=== PATIENT | female | born 1970 | race Caucasian/White ===

== ENCOUNTER 2020-01-26 11:57 | Emergency (ER) | payer OTHER ==
[2020-01-26 12:06] VITALS: BP 105/71; PULSE 85
[2020-01-26 12:58] LABS: CHLORIDE,CL 103 mmol/L (98-107); SODIUM,NA 138 mmol/L (136-145)
[2020-01-26] MEDS ORDERED: Albuterol/Ipratropium 3.0-0.5 MG/3 ML Neb Soln NEB ONE (13:00)
--- NOTE | 2020-01-26 13:24 | EDM.PDOC ---
ED HPI GENERAL MEDICAL PROBLEM - General Chief Complaint: General Stated Complaint: cough, body aches Time Seen by Provider: 01/26/20 11:58 Source of Information: Reports: Patient History Limitations: Reports: No Limitations - History of Present Illness INITIAL COMMENTS - FREE TEXT/NARRATIVE: Pt presents with fever, dry cough body aches Symptoms began 3 days ago No other sin home with same No known exposures but did travel to [place] for 10 days and returned to on 01/17 Did travel through [place] and [place] Onset: Gradual Duration: Day(s): Location: Reports: Chest, Generalized Quality: Reports: Ache, Dull Severity: Moderate Associated Symptoms: Reports: Cough, Fever/Chills, Malaise generalized Pain Score (Numeric/FACES): 4 - Related Data Allergies Allergy/AdvReac Type Severity Reaction Status Date / Time Iodinated Contrast Media Allergy Anaphylactic Verified 01/26/20 12:07 Shock meperidine [From Demerol] Allergy Agitation Verified 01/26/20 12:07 nicotine Allergy Hives Verified 01/26/20 12:22 Home Meds: Home Meds Aspirin [Children's Aspirin] 81 mg PO DAILY 01/26/20 [History] Esomeprazole Magnesium [Nexium 24Hr] 20 mg PO DAILY 01/26/20 [History] Ibuprofen 800 mg PO Q6HR PRN 01/26/20 [History] Loratadine [Claritin] 10 mg PO DAILY 01/26/20 [History] Past Medical History - Past Surgical History HEENT Surgical History: Reports: Adenoidectomy, Tonsillectomy Musculoskeletal Surgical History: Reports: Other (See Below) Other Musculoskeletal Surgeries/Procedures:: laminectomy and discectomy Social & Family History - Tobacco Use Smoking Status *Q: Current Every Day Smoker Years of Tobacco use: 25 Packs/Tins Daily: 0.5 Second Hand Smoke Exposure: No - Caffeine Use Caffeine Use: Reports: Coffee - Recreational Drug Use Recreational Drug Use: No ED ROS GENERAL - Review of Systems Review Of Systems: See Below Constitutional: Reports: Fever, Chills, Malaise HEENT: Reports: No Symptoms Respiratory: Reports: Shortness of Breath, Cough Cardiovascular: Reports: No Symptoms GI/Abdominal: Reports: No Symptoms Musculoskeletal: Reports: No Symptoms Skin: Reports: No Symptoms ED EXAM, GENERAL - Physical Exam Exam: See Below Exam Limited By: No Limitations General Appearance: Alert, WD/WN, Mild Distress Neck: Supple Respiratory/Chest: Decreased Breath Sounds Cardiovascular: Regular Rate, Rhythm Course - Vital Signs Last Recorded V/S: Last Vital Signs Temp 98.2 F 01/26/20 11:58 Pulse 85 01/26/20 11:58 Resp 20 01/26/20 11:58 BP 105/71 01/26/20 11:58 Pulse Ox 95 01/26/20 11:58 - Orders/Labs/Meds Orders: Active Orders 24 hr Category Date Time Status RT Aerosol Therapy [RC] ASDIRECTED Care 01/26/20 13:01 Active Chest 2V [CR] Stat Exams 01/26/20 12:25 Taken Labs: Laboratory Tests 01/26/20 01/26/20 Range/Units 12:31 12:31 WBC 3.9 L (4.0-10.2) K/uL RBC 4.15 (3.77-5.09) M/uL Hgb 13.4 (11.7-15.5) g/dL Hct 40.5 (34.0-46.0) % MCV 97.6 (84.0-98.0) fL MCH 32.3 (28.2-33.3) pg MCHC 33.1 (31.7-36.0) g/dL RDW 13.5 (11.2-14.1) % Plt Count 128 L (150-350) K/uL Neut % (Auto) 41.6 L (45.0-80.0) % Lymph % (Auto) 45.3 (10.0-50.0) % [place] % (Auto) 12.0 (2.0-14.0) % Eos % (Auto) 0.8 (0.0-5.0) % Baso % (Auto) 0.3 (0.0-2.0) % Neut # (Auto) 1.63 (1.40-7.00) K/uL Lymph # (Auto) 1.77 (0.50-3.50) K/uL [place] # (Auto) 0.47 (0.00-1.00) K/uL Eos # (Auto) 0.03 (0.00-0.50) K/uL Baso # (Auto) 0.01 (0.00-0.20) K/uL Sodium 138 (136-145) mmol/L Potassium 3.9 (3.5-5.1) mmol/L Chloride 103 (98-107) mmol/L Carbon Dioxide 26.7 (21.0-32.0) mmol/L BUN 17 (7-18) mg/dL Creatinine 0.95 (0.51-1.17) mg/dL Est Cr Clr Drug Dosing 73.22 mL/min Estimated GFR (MDRD) > 60 mL/min Glucose 94 (74-106) mg/dL Calcium 8.6 (8.5-10.1) mg/dL Total Bilirubin 0.3 (0.2-1.0) mg/dL AST 29 (15-37) U/L ALT 28 (12-78) U/L Alkaline Phosphatase 74 (46-116) IU/L Total Protein 7.6 (6.4-8.2) g/dL Albumin 3.6 (3.4-5.0) g/dL Meds: Medications Discontinued Medications Generic Name Dose Route Start Last Admin Trade Name Freq PRN Reason Stop Dose Admin Albuterol/Ipratropium 3 ml 01/26/20 13:00 Duoneb 3.0-0.5 Mg/3 Ml NEB 01/26/20 13:01 ONETIME ONE - Re-Assessments/Exams Free Text/Narrative Re-Assessment/Exam: 01/26/20 13:22 See lab and CXR Pt given Duo-neb HHN in ER with improved symptoms D/W ND [facility] Does not meet standard for testing for Coronavirus testing Will test if symptoms change Departure - Departure Time of Disposition: 13:30 Disposition: Home, Self-Care 01 Clinical Impression: Viral syndrome - Discharge Information *PRESCRIPTION DRUG MONITORING PROGRAM REVIEWED*: Not Applicable *COPY OF PRESCRIPTION DRUG MONITORING REPORT IN PATIENT JEYSON: Not Applicable Instructions: Viral Respiratory Infection, [id number] Referrals: PCP,None [Primary Care Provider] - Forms: ED Department Discharge, ED Return to Work/School Form Additional Instructions: Tylenol or Motrin as needed Rx Albuterol HHN Rx Tessalon Perles Follow up in clinic Sepsis Event Note - Evaluation Sepsis Screening Result: No Definite Risk - Focused Exam Vital Signs: Vital Signs Temp Pulse Resp BP Pulse Ox 01/26/20 11:58 98.2 F 85 20 105/71 95 Date Exam was Performed: 01/26/20 Time Exam was Performed: 13:18 - My Orders Last 24 Hours: My Active Orders 01/26/20 12:25 Chest 2V [CR] Stat 01/26/20 13:01 RT Aerosol Therapy [RC] ASDIRECTED - Assessment/Plan Last 24 Hours: My Active Orders 01/26/20 12:25 Chest 2V [CR] Stat 01/26/20 13:01 RT Aerosol Therapy [RC] ASDIRECTED
== END 2020-01-26 13:41 | disposition home or self-care (01) ==
LOC: LL.ED 11:57
DX: R05 Cough (principal); B34.9 Viral infection, unspecified; Z91.041 Radiographic dye allergy status; Z88.5 Allergy status to narcotic agent; F17.210 Nicotine dependence, cigarettes, uncomplicated; Z79.82 Long term (current) use of aspirin; Z79.899 Other long term (current) drug therapy
CPT/HCPCS: 36415; 71046; 80053; 85025; 87804; 99284-25; J7620-GY